=== PATIENT | female | born 1975 | race Caucasian/White ===

== ENCOUNTER 2024-07-20 08:21 | Day surgery (SDC) | payer BC, OTHER ==
[2024-07-20 06:54] LABS: APPEARANCE,URINE SLT CLOUDY (Clear); BILIRUBIN,URINE NEGATIVE (Negative); COLOR,URINE YELLOW (Yellow); GLUCOSE,URINE NEGATIVE (Negative); KETONES,URINE NEGATIVE (Negative); LEUKOCYTE ESTERASE,URINE NEGATIVE (Negative); NITRITE,URINE NEGATIVE (Negative); OCCULT BLOOD,URINE TRACE-INTACT (Negative); PH,URINE 5.5 (5.0-8.0); PROTEIN,URINE NEGATIVE (Negative); UROBILINOGEN,URINE 0.2 (0.2-1.0)
[2024-07-20 07:07] LABS: BACTERIA,URINE FEW /hpf (FEW); MUCUS,URINE MANY /hpf (FEW); WBC,URINE 0-5 /hpf (0-5)
[~2024-07-20 08:21] MED LIST: Acetaminophen 325 MG Tab PO ONE; Bupivacaine 0.25% 10 ML SDV ONE; Bupivacaine 0.5% 30 ML SDV ONE; Dexamethasone 4 MG/ML 5 ML MDV ONE; EPINEPHrine 1 MG/ML SDV ONE; Ketamine 200 MG/20 ML MDV ONE; Ketorolac 15 MG/ML SDV ONE; Lactated Ringers 1,000 ML IV SCH; Lidocaine 1% 5 ML VIAL ONE; Midazolam 1 MG/ML 2 ML SDV ONE; Ondansetron 4 MG/2 ML SDV ONE; Propofol 200 MG/20 ML SDV ONE; Rocuronium 50 MG/5 ML Vial ONE; Ropivacaine 0.5% 5 MG/ML 30 ML SDV ONE; Sodium Chloride 0.9% 10 ML Syringe FLUSH PRN; Sodium Chloride 0.9% 10 ML Syringe FLUSH SCH; Sodium Chloride 0.9% 100 ML ONE; dexmedeTOMIDine HCl 200 MCG/2 ML SDV ONE; fentaNYL 250 MCG/5 ML SDV ONE
[2024-07-20] MEDS ORDERED: Lactated Ringers 1,000 ML IV ONE (08:22)
[2024-07-20] MEDS ORDERED: HYDROmorphone 0.5 MG/0.5 ML Syringe ONE ×3 (08:44→10:47)
[2024-07-20] MEDS ORDERED: ceFAZolin 2 GM Vial ONE (08:48)
[2024-07-20] MEDS ORDERED: Rocuronium 50 MG/5 ML Vial ONE (09:12)
[2024-07-20] MEDS ORDERED: fentaNYL 100 MCG/2 ML SDV IVPUSH PRN (09:13)
[2024-07-20] MEDS ORDERED: HYDROmorphone 0.5 MG/0.5 ML Syringe IVPUSH PRN (09:13)
[2024-07-20] MEDS ORDERED: Ondansetron 4 MG/2 ML SDV IVPUSH PRN (09:13)
[2024-07-20] MEDS ORDERED: Bupivacaine 0.25% 10 ML SDV ONE (09:38)
[2024-07-20] MEDS ORDERED: Propofol 200 MG/20 ML SDV ONE ×7 (09:44→11:25)
[2024-07-20] MEDS ORDERED: Sugammadex Sodium 200 MG/2 ML VIAL IV ONE (09:47)
[2024-07-20] MEDS ORDERED: Ketorolac 30 MG/ML SDV ONE (09:47)
[2024-07-20] MEDS ORDERED: Lactated Ringers 1,000 ML ONE (10:42)
[2024-07-20] MEDS: diphenhydrAMINE 50 MG/ML SDV IVPUSH ONE (12:25)
[2024-07-20] MEDS: oxyCODONE 5 MG Tab PO PRN (14:05)
== END 2024-07-20 15:00 | disposition home or self-care (01) ==
LOC: JD.SDS 08:21
PROVIDERS: ATTEND Obstetrics & Gynecology
DX: N85.8 Other specified noninflammatory disorders of uterus (principal); N73.6 Female pelvic peritoneal adhesions (postinfective); N39.3 Stress incontinence (female) (male); E78.00 Pure hypercholesterolemia, unspecified; Z79.899 Other long term (current) drug therapy; Z98.891 History of uterine scar from previous surgery; Z87.891 Personal history of nicotine dependence
CPT/HCPCS: 00944; 36415; 64488; 81001; 81025; 86850; 86900; 86901; A9270-GY; C1771; J0171; J0665; J0690; J1100; J1200; J1885; J2250; J2405; J2704; J2795; J3010; J3490; J7120